=== PATIENT | male | born 1945 | race Caucasian/White ===

== ENCOUNTER 2024-11-05 12:25 | Inpatient (IN) | payer MEDICARE ==
[2024-11-05] MEDS ORDERED: Acetaminophen 325 MG TAB PO PRN (16:56)
[2024-11-05] MEDS ORDERED: Ondansetron ODT 4 MG TAB SL PRN (17:06)
[2024-11-05] MEDS: Guaifenesin DM 100-10/5 ML UDCUP PO PRN (18:43)
[2024-11-05] MEDS: Ipratropium/Albuterol 3 ML NEB NEB PRN (18:44)
[2024-11-05] MEDS: Magnesium Oxide 400 MG TAB PO SCH (21:10)
[2024-11-05] MEDS: Gabapentin 300 MG CAP PO SCH (21:10)
[2024-11-05] MEDS: Aspirin 81 mg Enteric Coated Tablet PO SCH (21:10)
[2024-11-05] MEDS: Tamsulosin HCl 0.4 MG CAP PO SCH (21:11)
[2024-11-05] MEDS: Loratadine 10 MG TAB PO SCH (21:12)
[2024-11-05] MEDS: Carvedilol 25 MG TAB PO SCH (21:12)
[2024-11-05] MEDS: hydrALAZINE 25 MG TAB PO SCH (21:12)
[2024-11-05] MEDS: Fluticasone Propionate Nasal Spray 16 gm Bottle NASAL SCH (21:12)
[2024-11-05] MEDS: traZODone HCl 50 MG TAB PO PRN (23:58)
[2024-11-06 05:20] LABS: #Basophils 0.1 thou/uL (0.0-0.2); #Eosinophils 0.3 thou/uL (0.0-0.7); #Lymphocytes 1.5 thou/uL (1.20-3.40); #Monocytes 0.7 thou/uL (0.11-0.59); #Neutrophils 4.3 thou/uL (1.40-6.50); %Basophils 1.4 % (0.0-1.0); %Eosinophils 4.4 % (0.0-10.0); %Lymphocytes 21.1 % (21.0-51.0); %Neutrophils 63.1 % (42.0-75.0); Hematocrit 30.6 % (42.0-52.0); Hemoglobin 9.2 g/dL (14.0-18.0); Mean Corpuscular HGB CONC 29.9 g/dL (32.0-36.0); Mean Platelet Volume 7.2 fL (7.4-10.4); Platelet Count 238 10x3/uL (130-400); Red Blood Cell (RBC) Count 2.96 mill/uL (4.70-6.10); White Blood Cell (WBC) Count 6.9 10x3/uL (4.8-10.8)
[2024-11-06 05:28] LABS: ALT (SGPT) 54 U/L (Less than 45); AST (SGOT) 51 U/L (11-34); Albumin 2.4 g/dL (3.1-4.5); Alkaline Phosphatase 81 U/L (40-110); Anion Gap 11 mmol/L (10-20); BUN (Urea Nitrogen) 14 mg/dL (8.4-25.7); Bilirubin, Total 0.5 mg/dL (0.3-1.2); Calc. Creatinine Clearance 52 mL/min (70-130); Calcium 8.6 mg/dL (7.8-10.44); Carbon Dioxide 26 mmol/L (23-31); Chloride 102 mmol/L (98-107); Estimated GFR 52; Globulin 3.6 g/dL (2.4-3.5); Glucose 104 mg/dL (83-110); Magnesium 1.9 mg/dL (1.6-2.6); Sodium 135 mmol/L (136-145)
[2024-11-06] MEDS: LevoFLOXacin 500 MG TAB PO SCH (05:48)
[2024-11-06] MEDS: Clopidogrel Bisulfate 75 MG TAB PO SCH (08:13)
[2024-11-06] MEDS: Furosemide 40 MG TAB PO SCH (08:13)
[2024-11-06] MEDS: Folic Acid/Vit B Comp W-C PO SCH (08:13)
[2024-11-06] MEDS: Pantoprazole 40 MG DR.TAB PO SCH (08:13)
[2024-11-06] MEDS: Rosuvastatin 20 MG TAB PO SCH (08:14)
[2024-11-06] MEDS: traMADol HCl 50 MG TAB PO PRN (20:44)
[2024-11-07 05:55] VITALS: BMI 25.9
[2024-11-07] MEDS: Senokot S 8.6-50 MG TAB PO PRN (06:02)
[2024-11-07] MEDS: traMADol HCl 50 MG TAB PO PRN (14:51)
[2024-11-07] MEDS: Senokot S 8.6-50 MG TAB PO SCH (20:51)
[2024-11-07] MEDS: traZODone HCl 50 MG TAB PO SCH (20:52)
[2024-11-09] MEDS: Acetaminophen 325 MG TAB PO PRN (20:14)
[2024-11-10] MEDS: Polyethylene Glycol 3350 17 GM Packet PO SCH (13:50)
[2024-11-10] MEDS: Acetaminophen 325 MG TAB PO SCH (13:50)
[2024-11-10] MEDS: traMADol HCl 50 MG TAB PO SCH (13:51)
[2024-11-10] MEDS: Diclofenac 1% 100 GM Topical GEL TP PRN (15:24)
[2024-11-10] MEDS: Bisacodyl 5 MG TAB PO PRN (15:29)
[2024-11-11] MEDS: Polyethylene Glycol 3350 17 GM Packet PO SCH (07:46)
[2024-11-11] MEDS: DULoxetine 20 MG CAP PO SCH (12:48)
[2024-11-11] MEDS: Simethicone Chewable 80 MG TAB PO PRN (21:40)
[2024-11-12] MEDS: DULoxetine 20 MG CAP PO SCH (07:54)
[2024-11-13 06:05] LABS: #Basophils 0.1 thou/uL (0.0-0.2); #Eosinophils 0.2 thou/uL (0.0-0.7); #Lymphocytes 1.6 thou/uL (1.20-3.40); #Monocytes 0.7 thou/uL (0.11-0.59); #Neutrophils 4.4 thou/uL (1.40-6.50); %Eosinophils 3.4 % (0.0-10.0); %Lymphocytes 22.5 % (21.0-51.0); %Neutrophils 63.1 % (42.0-75.0); Hematocrit 29.8 % (42.0-52.0); Hemoglobin 9.1 g/dL (14.0-18.0); Mean Corpuscular HGB CONC 30.5 g/dL (32.0-36.0); Mean Corpuscular Hemoglobin 30.7 pg (27.0-31.0); Mean Platelet Volume 6.8 fL (7.4-10.4); Platelet Count 318 10x3/uL (130-400); RBC Distribution Width 14.2 % (11.5-14.5); Red Blood Cell (RBC) Count 2.96 mill/uL (4.70-6.10)
[2024-11-13 06:19] LABS: Anion Gap 12 mmol/L (10-20); BUN (Urea Nitrogen) 19 mg/dL (8.4-25.7); Calc. Creatinine Clearance 54 mL/min (70-130); Calcium 8.7 mg/dL (7.8-10.44); Carbon Dioxide 27 mmol/L (23-31); Chloride 99 mmol/L (98-107); Estimated GFR 57; Glucose 93 mg/dL (83-110); Potassium 3.6 mmol/L (3.5-5.1); Sodium 134 mmol/L (136-145)
[2024-11-13] MEDS: hydrALAZINE 25 MG TAB PO SCH (20:27)
[2024-11-13] MEDS: Carvedilol 25 MG TAB PO SCH (20:27)
[2024-11-15] MEDS: Acetaminophen 325 MG TAB PO PRN (17:32)
[2024-11-17] MEDS: traMADol HCl 50 MG TAB PO PRN (05:46)
[2024-11-20 05:15] LABS: #Basophils 0.1 thou/uL (0.0-0.2); #Eosinophils 0.3 thou/uL (0.0-0.7); #Lymphocytes 1.5 thou/uL (1.20-3.40); #Monocytes 0.6 thou/uL (0.11-0.59); #Neutrophils 4.4 thou/uL (1.40-6.50); %Basophils 1.3 % (0.0-1.0); %Eosinophils 4.5 % (0.0-10.0); %Lymphocytes 22.1 % (21.0-51.0); %Monocytes 9.2 % (0.0-10.0); %Neutrophils 62.9 % (42.0-75.0); Hematocrit 30.9 % (42.0-52.0); Hemoglobin 9.3 g/dL (14.0-18.0); Mean Corpuscular HGB CONC 30.3 g/dL (32.0-36.0); Mean Corpuscular Hemoglobin 30.2 pg (27.0-31.0); Mean Corpuscular Volume 99.7 fl (78.0-98.0); Mean Platelet Volume 6.3 fL (7.4-10.4); Platelet Count 251 10x3/uL (130-400); RBC Distribution Width 14.3 % (11.5-14.5); White Blood Cell (WBC) Count 6.9 10x3/uL (4.8-10.8)
[2024-11-20 05:30] LABS: Anion Gap 10 mmol/L (10-20); BUN (Urea Nitrogen) 21 mg/dL (8.4-25.7); Calc. Creatinine Clearance 60 mL/min (70-130); Calcium 8.9 mg/dL (7.8-10.44); Carbon Dioxide 29 mmol/L (23-31); Chloride 102 mmol/L (98-107); Estimated GFR 66; Glucose 98 mg/dL (83-110); Potassium 3.9 mmol/L (3.5-5.1); Sodium 137 mmol/L (136-145)
[2024-11-25 05:57] LABS: #Basophils 0.1 thou/uL (0.0-0.2); #Eosinophils 0.2 thou/uL (0.0-0.7); #Lymphocytes 1.7 thou/uL (1.20-3.40); #Neutrophils 6.5 thou/uL (1.40-6.50); %Basophils 0.9 % (0.0-1.0); %Eosinophils 1.9 % (0.0-10.0); %Lymphocytes 17.9 % (21.0-51.0); %Monocytes 10.5 % (0.0-10.0); %Neutrophils 68.8 % (42.0-75.0); Hematocrit 29.1 % (42.0-52.0); Hemoglobin 9.2 g/dL (14.0-18.0); Mean Corpuscular HGB CONC 31.6 g/dL (32.0-36.0); Mean Corpuscular Hemoglobin 30.4 pg (27.0-31.0); Mean Corpuscular Volume 96.2 fl (78.0-98.0); Mean Platelet Volume 7.2 fL (7.4-10.4); Platelet Count 234 10x3/uL (130-400); Red Blood Cell (RBC) Count 3.03 mill/uL (4.70-6.10); White Blood Cell (WBC) Count 9.4 10x3/uL (4.8-10.8)
[2024-11-25 06:05] LABS: Anion Gap 14 mmol/L (10-20); BUN (Urea Nitrogen) 30 mg/dL (8.4-25.7); Calc. Creatinine Clearance 58 mL/min (70-130); Carbon Dioxide 25 mmol/L (23-31); Chloride 100 mmol/L (98-107); Estimated GFR 64; Glucose 120 mg/dL (83-110); Magnesium 1.9 mg/dL (1.6-2.6); Potassium 3.9 mmol/L (3.5-5.1); Sodium 135 mmol/L (136-145)
[2024-11-25 10:30] VITALS: BMI 24.3
[2024-11-25 19:50] VITALS: TEMP 98.3
[2024-11-26 07:50] VITALS: BP 127/74
== END 2024-11-26 09:44 | disposition home health service (06) | DRG 947 ==
LOC: NAV ACUTE 17:43
PROVIDERS: ADMIT Family Medicine; ATTEND Family Medicine
DX: R53.81 Other malaise (principal); N18.6 End stage renal disease; I12.0 Hypertensive chronic kidney disease with stage 5 chronic kidney disease or end stage renal disease; T81.31XA Disruption of external operation (surgical) wound, not elsewhere classified, initial encounter; I25.5 Ischemic cardiomyopathy; I25.10 Atherosclerotic heart disease of native coronary artery without angina pectoris; K21.9 Gastro-esophageal reflux disease without esophagitis; N40.0 Benign prostatic hyperplasia without lower urinary tract symptoms; E78.5 Hyperlipidemia, unspecified; D63.1 Anemia in chronic kidney disease; Z95.1 Presence of aortocoronary bypass graft; Z98.890 Other specified postprocedural states; Z95.810 Presence of automatic (implantable) cardiac defibrillator; Z88.8 Allergy status to other drugs, medicaments and biological substances; Z79.82 Long term (current) use of aspirin; E83.42 Hypomagnesemia; G47.00 Insomnia, unspecified
CPT/HCPCS: 36415; 80048; 80053; 83735; 85025; 94640; 97602; J7620